=== PATIENT | male | born 2000 | race Hispanic/Latino ===

== ENCOUNTER 2019-03-10 09:51 | Emergency (ER) | payer SELFPAY ==
--- NOTE | 2019-03-10 10:26 | RAD ---
LEFT ANKLE 3 VIEWS: Date: 03/10/19 HISTORY: Ankle pain. FINDINGS: No soft tissue swelling is seen. No joint effusion or fracture. IMPRESSION: No acute findings. POS: [facility]
== END 2019-03-10 10:27 | disposition home or self-care (01) ==
LOC: SCSER 09:51
DX: S93.402A Sprain of unspecified ligament of left ankle, initial encounter (principal); X58.XXXA Exposure to other specified factors, initial encounter